=== PATIENT | male | born 1945 | race Caucasian/White ===

== ENCOUNTER → 2017-07-20 12:58 | Outpatient (CLI) | payer MEDICARE ==
[2015-11-06 10:42] VITALS: BMI 24.7
[~2017-07-20 12:58] MED LIST: CINNAMON PO; CLONAZEPAM2 MG/TAB; CYCLOBENZAPRINE10 MG PO; EFFEXOR XR150 MG PO; GLUCOPHAGE500 MG PO; KLOR-CON 1010 MEQ PO; LISINOPRIL5 MG PO; NORCO 5/325 TAB1 TA1 PO; PLAVIX75 MG PO; PLETAL100 MG PO; PROTONIX40 MG PO; REGLAN10 MG PO; REQUIP0.25 MG PO; SPIRIVA18 MCG; SYMBICORT 16010.2 GM; TENORMIN50 MG PO; VITAMIN B-121000 MC3 PO; ZANAFLEX4 MG PO; ZOCOR40 MG PO; ZYLOPRIM100 MG PO
== END | disposition home or self-care (01) ==
LOC: D.US 07-19 13:30
DX: I70.223 Atherosclerosis of native arteries of extremities with rest pain, bilateral legs (principal)

== ENCOUNTER → 2017-08-11 09:19 | Outpatient (CLI) | payer MEDICARE ==
[2015-11-06 10:42] VITALS: BMI 24.7
== END | disposition home or self-care (01) ==
LOC: D.CT 09:19
DX: I73.9 Peripheral vascular disease, unspecified (principal)

== ENCOUNTER → 2018-08-26 13:29 | Outpatient (CLI) | payer MEDICARE ==
[2015-11-06 10:42] VITALS: BMI 24.7
== END | disposition home or self-care (01) ==
LOC: D.ER 13:29
DX: B07.0 Plantar wart (principal)